=== PATIENT | female | born 1965 | race Two or more races ===

== ENCOUNTER 2019-12-15 08:03 | Emergency (ER) | payer MEDICAID ==
[~2019-12-15] VITALS: Ht 160 cm; Wt 70.0 kg
[2019-12-15] MEDS ORDERED: OXYCODONE HCL/ACETAMINOPHEN 5/325MG TABLET PO ONE ×2 (08:45→12:00)
[2019-12-15 12:38] VITALS: BP 136/80
== END 2019-12-15 12:39 | disposition home or self-care (01) ==
LOC: ER 08:03
DX: S52.615A Nondisplaced fracture of left ulna styloid process, initial encounter for closed fracture (principal); S52.592A Other fractures of lower end of left radius, initial encounter for closed fracture; E11.9 Type 2 diabetes mellitus without complications; I10 Essential (primary) hypertension; M19.90 Unspecified osteoarthritis, unspecified site; V43.52XA Car driver injured in collision with other type car in traffic accident, initial encounter; Y93.89 Activity, other specified; Y92.488 Other paved roadways as the place of occurrence of the external cause
CPT/HCPCS: 29105; 71045; 73130; 73562; 99285